=== PATIENT | male | born 1960 | race Caucasian/White ===

== ENCOUNTER 2024-07-18 06:18 | Day surgery (SDC) | payer BC ==
[2024-07-15 14:04] VITALS: BMI 31.3
[2024-07-18] MEDS ORDERED: LIDOCAINE HCL 1%, 10 MG/ML (20ML VIAL) ONE (07:09)
[2024-07-18] MEDS ORDERED: FENTANYL CITRATE/PF 50 MCG/ML VIAL ONE ×3 (07:19→09:23)
[2024-07-18] MEDS ORDERED: MIDAZOLAM HCL 2 MG/2 ML SINGLE DOSE VIAL ONE (07:19)
[2024-07-18] MEDS ORDERED: PROPOFOL 20 ML ONE (07:30)
[2024-07-18] MEDS ORDERED: ONDANSETRON 4 MG/2 ML VIAL IVPUSH PRN (09:02)
[2024-07-18] MEDS ORDERED: oxyCODONE HCL 5 MG TABLET PO PRN (09:02)
[2024-07-18] MEDS: ACETAMINOPHEN 1000 MG/100 ML BAG IVPB ONE (09:10)
[2024-07-18] MEDS ORDERED: LACTATED RINGERS SOLUTION 1,000 ML IV SCH (09:15)
[2024-07-18] MEDS: oxyCODONE HCL 5 MG TABLET ONE (09:52)
[2024-07-18 11:01] VITALS: RESP 16; TEMP 97.9
[2024-07-18 11:04] VITALS: BP 120/69; PULSE 60
== END 2024-07-18 10:50 | disposition home or self-care (01) ==
LOC: FASU 06:18
PROVIDERS: ATTEND Student in an Organized Health Care Education/Training Program
PROC: 0SBC4ZZ Excision of Right Knee Joint, Percutaneous Endoscopic Approach (ICD-10-PCS; principal; 2024-07-18 08:00)
DX: S83.241A Other tear of medial meniscus, current injury, right knee, initial encounter (principal); M17.11 Unilateral primary osteoarthritis, right knee; X58.XXXA Exposure to other specified factors, initial encounter; Y92.9 Unspecified place or not applicable; Y93.9 Activity, unspecified
CPT/HCPCS: 94760; J0131